=== PATIENT | male | born 1990 | race Caucasian/White ===

== ENCOUNTER 2019-04-28 17:41 | Emergency (ER) | payer OTHER ==
[~2019-04-28] VITALS: Ht 177.8 cm; Wt 136.1 kg
[2019-04-28 18:45] LABS: ABSOLUTE BASOPHILS 0.1 thou/uL (0.0-0.2); ABSOLUTE EOSINOPHILS 0.1 thou/uL (0.0-0.7); ABSOLUTE LYMPHOCYTES 2.1 thou/uL (0.8-5.3); ABSOLUTE MONOCYTES 0.7 thou/uL (0.0-1.2); ABSOLUTE NEUTROPHILS 7.5 thou/uL (1.6-8.1); BASOPHILS 0.6 %; EOSINOPHILS 1.3 %; HEMATOCRIT 41.4 % (42.0-52.0); HEMOGLOBIN 13.4 gm/dL (14.0-18.0); LYMPHOCYTES 20.5 %; MCHC 32.3 g/dL (28.0-37.0); MCV 68.2 fL (80.0-100.0); MONOCYTES 6.3 %; NUCLEATED RBCS 0 /100WBC; PLATELET COUNT* 310 thou/uL (150-400); POLYS 71.3 %; RBC 6.07 mil/uL (4.50-6.00); RDW-CV 15.2 % (10.5-14.5); WBC 10.5 thou/uL (4.0-11.0)
[2019-04-28 18:57] LABS: CALCIUM 9.4 mg/dL (8.5-10.1); POTASSIUM 3.9 mmol/L (3.5-5.1)
[2019-04-28 19:02] LABS: ALBUMIN 3.8 g/dL (3.4-5.0); TOTAL BILIRUBIN 0.7 mg/dL (<0.1-1.0); TOTAL PROTEIN 7.8 g/dL (6.4-8.2)
[2019-04-28 19:19] LABS: ANISOCYTOSIS Occasional; MICROCYTES 2+; OVALOCYTES Occasional; PLATELET ESTIMATE ADEQUATE
[2019-04-28 19:20] LABS: HYPOCHROMASIA 2+
[2019-04-28] MEDS ORDERED: NORCO 5-325 TA1 EAC1 PO (20:15)
[2019-04-28 20:18] LABS: URINE BILIRUBIN NEGATIVE (Negative); URINE BLOOD NEGATIVE (Negative); URINE CLARITY CLEAR; URINE COLOR YELLOW; URINE GLUCOSE-RANDOM NEGATIVE (Negative); URINE KETONES NEGATIVE (Negative); URINE LEUKOCYTES-REFLEX NEGATIVE (Negative); URINE NITRITE-REFLEX NEGATIVE (Negative); URINE PROTEIN NEGATIVE (Negative); URINE SPECIFIC GRAVITY 1.015 (1.005-1.030); URINE UROBILINOGEN 0.2 E.U./dl (0.2-1.0)
[2019-04-28 21:07] VITALS: BP 135/98
== END 2019-04-28 21:07 | disposition home or self-care (01) ==
LOC: M.ERS 17:41
PROVIDERS: Physician Assistant
DX: N43.3 Hydrocele, unspecified (principal); J45.909 Unspecified asthma, uncomplicated